=== PATIENT | female | born 1960 | race Hispanic/Latino ===

== ENCOUNTER 2019-04-06 01:31 | Emergency (ER) | payer SELFPAY ==
[2019-04-06] MEDS ORDERED: Lorazepam 2 MG/ML VIAL ONE (01:42)
[2019-04-06] MEDS ORDERED: Haloperidol Lactate 5 MG/ML VIAL ONE (01:42)
[2019-04-06 02:44] LABS: #Eosinphils 0.1 thou/uL (0.0-0.7); #Lymphocytes 1.6 thou/uL (1.20-3.40); #Monocytes 0.3 thou/uL (0.11-0.59); #Neutrophils 2.8 thou/uL (1.40-6.50); %Basophils 0.7 % (0.0-1.0); %Eosinophils 1.2 % (0.0-10.0); %Lymphocytes 33.5 % (21.0-51.0); %Neutrophils 57.7 % (42.0-75.0); Hemoglobin 11.9 g/dL (12.0-16.0); Mean Corpuscular HGB CONC 33.5 g/dL (32.0-36.0); Mean Corpuscular Hemoglobin 29.3 pg (27.0-31.0); Mean Corpuscular Volume 87.3 fL (78.0-98.0); Mean Platelet Volume 7.9 fL (7.4-10.4); Platelet Count 188 thou/uL (130-400); Red Blood Cell (RBC) Count 4.07 mill/uL (4.20-5.40); White Blood Cell (WBC) Count 4.9 thou/uL (4.8-10.8)
[2019-04-06 03:03] LABS: Acetaminophen Less than 6.0 mcg/mL (10.0-30.0); Alcohol 225 mg/dL (Less than 10); Salicylate Less than 8.0 mg/dL (15.0-30.0)
[2019-04-06 03:04] LABS: ALT (SGPT) 17 U/L (8-55); AST (SGOT) 21 U/L (5-34); Albumin 3.7 g/dL (3.5-5.0); Alkaline Phosphatase 72 U/L (40-150); Anion Gap 15 mmol/L (10-20); BUN (Urea Nitrogen) 9 mg/dL (9.8-20.1); Bilirubin, Total 0.2 mg/dL (0.2-1.2); Calc. Creatinine Clearance 0 mL/min (70-130); Carbon Dioxide 17 mmol/L (22-29); Chloride 115 mmol/L (98-107); Estimated GFR-MDRD Greater than 90; Globulin 2.8 g/dL (2.4-3.5); Glucose 93 mg/dL (70-105); Potassium 3.2 mmol/L (3.5-5.1); Protein, Total 6.5 g/dL (6.0-8.3); Sodium 144 mmol/L (136-145)
[2019-04-06 04:03] LABS: Clarity Hazy (Clear)
[2019-04-06 04:04] LABS: Bacteria/HPF Rare-Few HPF (None Seen); Bilirubin Negative (Negative); Blood, Urine Small (Negative); Glucose, Urine (Dipstick) Negative (Negative); Leukocyte Small (Negative); Nitrite Negative (Negative); Protein, Urine (Dipstick) 30 mg/dL (Neg-Trace); RBC/HPF 0-3 HPF (0-3); Urobilinogen 0.2 mg/dL (0.2-1.0); WBC/HPF 0-3 HPF (0-3)
[2019-04-06 04:05] LABS: Specific Gravity, Urine 1.006 (1.002-1.036)
[2019-04-06 04:09] LABS: Other Microscopic Description Less than 2 mL rec'd; Pregnancy Test - Urine (BHCG) Negative (Negative); Pregu Control Background? CLEAR/WHITE (CLR/WHITE); Pregu Control Bar Appear? YES (CONTROL BAR)
[2019-04-06 04:10] LABS: Amphetamine Detected (NotDetected); Barbiturates Screen Not Detected (NotDetected); Benzodiazepine Screen Not Detected (NotDetected); Cocaine Metabolite Screen Not Detected (NotDetected); Medtox Control Line Valid? VALID (VALID); Medtox Reader # READER 4; Methadone Not Detected (NotDetected); Methamphetamine Not Detected (NotDetected); Opiate Screen Not Detected (NotDetected); Oxycodone Screen Not Detected (NotDetected); Phencyclidine (PCP) Not Detected (NotDetected); THC/Cannabinoid Screen Not Detected (NotDetected); Tricyclic Screen Not Detected (NotDetected)
== END 2019-04-06 09:44 | disposition home or self-care (01) ==
LOC: EDBD 01:31 → ERS 01:31
DX: F10.129 Alcohol abuse with intoxication, unspecified (principal); E87.6 Hypokalemia
CPT/HCPCS: 36415; 51701; 80053; 80306; 80307; 81003; 81015; 81025; 84443; 85025; 93005; 96360; 96361; 96374; 96375; A4353; J1630; J2060

== ENCOUNTER 2024-12-21 12:42 | Observation (INO) | payer BC, SELFPAY ==
[~2024-12-21 12:42] MED LIST: Iopamidol-370 76% 500 ML MDV (1 ML CHARGE) ONE
[2024-12-21 13:20] LABS: #Basophils 0.06 10x3/uL (0.0-0.2); %Basophils 0.9 % (0.0-1.0); %Eosinophils 1.6 % (0.0-10.0); %Lymphocytes 33.2 % (21.0-51.0); %Monocytes 8.3 % (0.0-10.0); %Neutrophils 55.6 % (42.0-75.0); Hematocrit 41.2 % (36.0-47.0); Hemoglobin 13.6 g/dL (12.0-16.0); Mean Corpuscular Volume 84.8 fL (78.0-98.0); Mean Platelet Volume 10.2 fL (7.4-10.4); Platelet Count 292 10x3/uL (130-400); RBC Distribution Width 13.5 % (11.5-14.5); Red Blood Cell (RBC) Count 4.86 mill/uL (4.20-5.40)
[2024-12-21 13:46] LABS: ALT (SGPT) 21 U/L (Less than 34); AST (SGOT) 27 U/L (11-34); Albumin 4.1 g/dL (3.1-4.5); Alkaline Phosphatase 88 U/L (40-110); Anion Gap 15 mmol/L (10-20); BUN (Urea Nitrogen) 15 mg/dL (9.8-20.1); Bilirubin, Total 0.5 mg/dL (0.3-1.2); Calc. Creatinine Clearance 0 mL/min (70-130); Calcium 9.6 mg/dL (7.8-10.44); Carbon Dioxide 23 mmol/L (23-31); Chloride 105 mmol/L (98-107); Estimated GFR 99; Globulin 4.2 g/dL (2.4-3.5); Glucose 119 mg/dL (80-115); Potassium 4.3 mmol/L (3.5-5.1); Protein, Total 8.3 g/dL (5.8-8.1); Sodium 139 mmol/L (136-145)
[2024-12-21 14:08] LABS: Troponin I Less than 0.010 ng/mL (< 0.028)
[2024-12-21] MEDS ORDERED: Aspirin Chewable 81 MG TAB ONE (15:01)
[2024-12-21] MEDS ORDERED: Nitroglycerin 2% Ointment 1 INCH/1 GM Packet ONE (15:02)
[2024-12-21] MEDS ORDERED: Dextrose 50% Abboject 50 ML SYRINGE SLOW IVP PRN (17:19)
[2024-12-21] MEDS ORDERED: Senokot S 8.6-50 MG TAB PO PRN (17:19)
[2024-12-21] MEDS ORDERED: Dextrose 5% in Water 1,000 ML IV PRN (17:19)
[2024-12-21] MEDS ORDERED: Calcium Carbonate 500 MG ChewTAB PO PRN (17:19)
[2024-12-21] MEDS ORDERED: Ondansetron ODT 4 MG TAB PO PRN (17:19)
[2024-12-21] MEDS ORDERED: Glucagon 1 MG/ML KIT IM PRN (17:19)
[2024-12-21] MEDS ORDERED: Insulin Lispro 100 UNIT/ML 10 ML VIAL SC PRN ×2 (17:19)
[2024-12-21] MEDS ORDERED: Acetaminophen 650 MG Suppository PR PRN (17:19)
[2024-12-21] MEDS ORDERED: Ondansetron PF 4 MG/2 ML Vial IVP PRN (17:19)
[2024-12-21] MEDS ORDERED: Benzonatate 100 MG CAP PO PRN (17:42)
[2024-12-21 17:58] LABS: Troponin I Less than 0.010 ng/mL (< 0.028)
[2024-12-21] MEDS: Nitroglycerin 0.4 MG TAB (25 Tab Bottle) SL PRN (19:44)
[2024-12-21 21:11] LABS: Troponin I Less than 0.010 ng/mL (< 0.028)
[2024-12-21] MEDS: Famotidine 20 MG TAB PO SCH (21:22)
[2024-12-21] MEDS: Ketorolac Tromethamine 30 MG (1 mL) VIAL IVP SCH (21:23)
[2024-12-21] MEDS: Atorvastatin Calcium 40 MG TAB PO SCH (21:23)
[2024-12-21] MEDS: Albuterol 2.5 MG (3 mL) NEB NEB PRN (21:42)
[2024-12-21 23:07] VITALS: BMI 28.8
[2024-12-22 05:03] VITALS: TEMP 98.2
[2024-12-22 06:21] LABS: #Basophils 0.04 10x3/uL (0.0-0.2); %Basophils 0.7 % (0.0-1.0); %Eosinophils 2.4 % (0.0-10.0); %Lymphocytes 35.5 % (21.0-51.0); %Monocytes 9.4 % (0.0-10.0); %Neutrophils 51.8 % (42.0-75.0); Hematocrit 35.6 % (36.0-47.0); Hemoglobin 11.8 g/dL (12.0-16.0); Mean Corpuscular HGB CONC 33.1 g/dL (32.0-36.0); Mean Corpuscular Hemoglobin 27.9 pg (27.0-31.0); Mean Corpuscular Volume 84.2 fL (78.0-98.0); Mean Platelet Volume 10.5 fL (7.4-10.4); Platelet Count 229 10x3/uL (130-400); RBC Distribution Width 13.5 % (11.5-14.5); Red Blood Cell (RBC) Count 4.23 mill/uL (4.20-5.40)
[2024-12-22 06:39] LABS: Anion Gap 14 mmol/L (10-20); BUN (Urea Nitrogen) 14 mg/dL (9.8-20.1); Calc. Creatinine Clearance 127 mL/min (70-130); Calcium 8.7 mg/dL (7.8-10.44); Carbon Dioxide 23 mmol/L (23-31); Chloride 108 mmol/L (98-107); Estimated GFR 102; Glucose 116 mg/dL (80-115); Potassium 4.1 mmol/L (3.5-5.1); Sodium 141 mmol/L (136-145)
[2024-12-22] MEDS: Aspirin Chewable 81 MG TAB PO SCH (08:30)
[2024-12-22] MEDS: Enoxaparin 40 MG (0.4 mL) SYRINGE SC SCH (08:31)
[2024-12-22 08:47] VITALS: BP 143/91
[2024-12-22] MEDS ORDERED: Regadenoson 0.4 MG/5 ML SYRINGE ONE (10:15)
[2024-12-22] MEDS: Acetaminophen 325 MG TAB PO PRN (11:40)
[2024-12-22] MEDS ORDERED: Albuterol 200 PUFF (6.7GM INHALER) INH PRN (12:26)
== END 2024-12-22 14:28 | disposition home or self-care (01) ==
LOC: ERS 12:42 → 2NO 16:32
PROVIDERS: ADMIT Internal Medicine; ATTEND Family Medicine
DX: R07.89 Other chest pain (principal); R06.02 Shortness of breath; I72.8 Aneurysm of other specified arteries; I10 Essential (primary) hypertension; E11.9 Type 2 diabetes mellitus without complications; E78.5 Hyperlipidemia, unspecified; D73.89 Other diseases of spleen; Z87.59 Personal history of other complications of pregnancy, childbirth and the puerperium; Z79.51 Long term (current) use of inhaled steroids; Z79.84 Long term (current) use of oral hypoglycemic drugs; Z79.899 Other long term (current) drug therapy
CPT/HCPCS: 36415; 36416; 71045; 71275; 78452; 80048; 80053; 83735; 83880; 84443; 84484; 85025; 87428; 93005; 93017; 94640; 96374; 96376; A9502; G0378; J1650; J1885; J2785; J7611; Q9967